=== PATIENT | male | born 1990 | race Two or more races ===

== ENCOUNTER 2022-10-15 21:01 | Emergency (ER) | payer MEDICARE, SELFPAY ==
[2022-10-15 21:31] VITALS: BP 137/102; PULSE 102; RESP 18; TEMP 37.2; O2SAT 98; BMI 29.2
--- NOTE | 2022-10-15 22:44 | ED.ANIMALBIT ---
HPI - Animal Bite General Chief Complaint: Animal Bite Stated Complaint: Dog bite/Work related Source: patient Mode of arrival: ambulatory Limitations: no limitations History of Present Illness HPI narrative: 32-year-old male presents for evaluation after being bitten and attacked by dogs while at work. complaint: animal bite Onset (ago): hour(s) (17:30) Animal: dog Description of animal: unknown animal Mechanism: bite and scratch Location: buttocks Location - Extremities: right: arm Pain description: constant Severity scale (1-10): 5 Context: animals fighting Associated symptoms: bleeding Related Data Patient tetanus UTD: No Previous Rx's Medication Instructions Recorded amoxicillin 875 mg-potassium 1 tab PO Q12H 10 days #20 tabs 10/16/22 clavulanate 125 mg tablet Allergies Allergy/AdvReac Type Severity Reaction Status Date / Time No Known Allergies Allergy Unverified 04/13/20 17:14 [No Known Allergies*] Review of Systems Review of Systems: Constitutional: No Fever, No Chills Cardiovascular: No Chest Pain, No SOB Respiratory: No Cough, No Dyspnea Gastrointestinal: No Nausea, No Vomiting, No Diarrhea, No abdominal Pain Genitourinary: No Dysuria, No Hematuria Musculoskeletal: positive right arm and buttock pain, No Myalgias, No Joint Swelling Skin: Multiple abrasions to the right forearm, dog bite to buttock, No Skin lacerations, No rash Neuro: No Weakness, No Numbness, No Paresthesias, No Dizziness, No Headache Yes all other systems are reviewed and are negative PMFSH Social History Social History Advance Directives: No Advance Directives Information Provided: No Physical Exam ED Vital Signs: Vital Signs - 24 hr 10/15/22 21:31 Temperature 98.9 F Pulse Rate 102 H Respiratory Rate 18 Blood Pressure 137/102 H Pulse Oximetry 98 Oxygen Delivery Method Room Air BMI result Body Mass Index 29.2 Appearance: Alert. Oriented X3. No acute distress. Eyes: Pupils equal, round and reactive to light. ENT: Pharynx normal. Neck: Normal inspection. Neck supple. CVS: Normal heart rate and rhythm. Pulses normal. Respiratory: No respiratory distress. Breath sounds normal. Skin: Numerous superficial scratches and bite marlow to the forearm and bite marlow to buttock. Extremities: No lower extremity edema. Gait balance and coordinated. Neuro: No motor deficit. No sensory deficit. Cranial nerves 2-12 intact Course Course Course Narrative: 32-year-old male presents for evaluation for a dog bite attack. Patient was at work, and was bitten by dogs, fell to the ground and has multiple dermal abrasions to the forearm, and bite marlow to his buttocks. Plan of care is to clean the wounds rabies vaccine, update Tdap vaccine, and immunoglobulin. Wounds were cleaned, plan of care is for patient to follow up with work connection as needed. Will give Augmentin. Patient verbalized understanding of discharge instructions. Verbalized understandings of signs and symptoms indicating need for emergent intervention. Medications Administered Discontinued Medications Generic Name Dose Route Start Last Admin Trade Name Freq PRN Reason Stop Dose Admin Amoxicillin/Clavulanate Potassium 875 mg 10/15/22 22:45 10/15/22 23:14 Amoxicillin/Potassium Clav 875 Mg Tablet PO 10/15/22 22:46 875 mg ONCE ONE Administration Diphtheria/Tetanus/Acell Pertussis 0.5 ml 10/15/22 22:44 10/15/22 23:16 Diphth,Pertus(Acell),Tet Adult 0.5 Ml Syringe IM 10/15/22 22:45 0.5 ml .ONCE ONE Administration Rabies Immune Globulin 1,496.86 unit 10/15/22 22:44 10/15/22 23:16 Rabies Immune Globulin/Pf 900 Unit/3 Ml Vial 20 unit/kg (1496.86 unit) 10/15/22 22:45 1,496.86 unit IM Administration ONCE ONE Rabies Vaccine 1 ml 10/15/22 22:44 10/15/22 23:15 Rabies Vaccine (Pcec)/Pf 1 Ml Vial IM 10/15/22 22:45 1 ml .ONCE ONE Administration Medical Decision Making Differential Diagnosis Differential Diagnoses: The differential diagnosis associated with the presentation includes Abrasions, dog bite External Record Review No prior records for this patient at this facility Prescription Management I considered prescription management with: Antibiotic Discharge Plan Discharge Clinical Impression: Dog bite Patient Disposition: Home, Self-Care Instructions: Animal Bite (ED), Rabies (ED) Additional Instructions: You were evaluated for a dog bite and attack, while you are at work. We cleaned your wounds, and gave you rabies immunoglobulin and vaccine. Please present for subsequent vaccines as directed. It is very important that you follow these directions, rabies will kill you. Please take Augmentin 875 mg twice a day for the next 10 days. We updated your Tdap vaccine today. Please follow-up with work connection in the next 3-5 days. If you notice any signs or symptoms indicating infection please return sooner. Thank you for choosing this emergency department for evaluation. Please follow-up with primary care physician as needed. Return to the emergency department for any new, concerning, or worsening symptoms. Prescriptions: New amoxicillin-pot clavulanate 875-125 mg tablet 1 tab PO Q12H 10 Days Qty: 20 0RF
[2022-10-15] MEDS: Amoxicillin/Potassium Clav 875 MG TABLET PO (23:14)
[2022-10-15] MEDS: Rabies Vaccine (PCEC)/PF 1 ML VIAL IM (23:15)
[2022-10-15] MEDS: Diphth,Pertus(ACell),Tet Adult 0.5 ML SYRINGE IM (23:16)
[2022-10-15] MEDS: Rabies Immune Globulin/PF 900 UNIT/3 ML VIAL 1496.86 UNIT IM (23:16)
== END 2022-10-16 00:30 | disposition home or self-care (01) ==
PROVIDERS: Emergency Provider Emergency Medicine Emergency Medical Services
DX: S41.151A Open bite of right upper arm, initial encounter (principal); S31.805A Open bite of unspecified buttock, initial encounter; S40.811A Abrasion of right upper arm, initial encounter; S40.812A Abrasion of left upper arm, initial encounter; W54.0XXA Bitten by dog, initial encounter; Y93.9 Activity, unspecified; Y92.9 Unspecified place or not applicable; Y99.0 Civilian activity done for income or pay; Z29.14 Encounter for prophylactic rabies immune globulin; Z20.3 Contact with and (suspected) exposure to rabies; Z79.899 Other long term (current) drug therapy
CPT/HCPCS: 90375; 90471; 90472; 90675; 90715; 96372; 99282; 99284

== ENCOUNTER 2022-10-18 12:05 | Outpatient (REF) | payer MEDICARE, MEDICAID, SELFPAY | END 2022-10-18 12:06 | disposition home or self-care (01) | LOC: HO.MDS 12:05 | PROVIDERS: Visit Provider Nurse Practitioner Family | DX: Z29.14 Encounter for prophylactic rabies immune globulin (principal); S31.815D Open bite of right buttock, subsequent encounter; S51.851D Open bite of right forearm, subsequent encounter; W54.0XXD Bitten by dog, subsequent encounter; Z20.3 Contact with and (suspected) exposure to rabies | CPT/HCPCS: 90471; 90675 ==

== ENCOUNTER 2022-10-22 09:21 | Outpatient (REF) | payer MEDICARE, MEDICAID, SELFPAY | END 2022-10-22 09:22 | disposition home or self-care (01) | LOC: HO.MDS 09:21 | PROVIDERS: Visit Provider Nurse Practitioner Family | DX: Z29.14 Encounter for prophylactic rabies immune globulin (principal); S31.815D Open bite of right buttock, subsequent encounter; S51.851D Open bite of right forearm, subsequent encounter; W54.0XXD Bitten by dog, subsequent encounter; Z20.3 Contact with and (suspected) exposure to rabies | CPT/HCPCS: 90471; 90675 ==

== ENCOUNTER 2022-10-29 08:59 | Outpatient (REF) | payer MEDICARE, MEDICAID, SELFPAY | END 2022-10-29 09:00 | disposition home or self-care (01) | LOC: HO.MDS 08:59 | PROVIDERS: Visit Provider Nurse Practitioner Family | DX: Z29.14 Encounter for prophylactic rabies immune globulin (principal); S30.870D Other superficial bite of lower back and pelvis, subsequent encounter; S50.871D Other superficial bite of right forearm, subsequent encounter; W54.0XXD Bitten by dog, subsequent encounter; Z20.3 Contact with and (suspected) exposure to rabies | CPT/HCPCS: 90471; 90675 ==

== ENCOUNTER 2022-12-20 08:18 | Outpatient (REF) | payer OTHER, SELFPAY ==
[2022-12-20 11:17] LABS: MANUAL DIFF FLAG NO
[2022-12-20 11:35] LABS: Appearance Urine Clear; Color Urine Yellow; Glucose Urine UA Negative (Negative); Leukocyte Esterase Urine Negative (Negative); Nitrite Urine Negative (Negative); Specific Gravity - Urine 1.025 (1.005-1.025); Urine Blood Negative (Negative); Urine Ketones Negative (Negative); Urine Protein Negative (Neg-Trace)
[2022-12-20 11:39] LABS: Basophils Absolute Auto 0.1 X10*3/uL (0.0-0.2); Basophils Percent Auto 0.7 % (0-2); Eosinophils Absolute Auto 0.8 X10*3/uL (0.0-0.4); Eosinophils Percent Auto 9.7 % (0-4); Hematocrit 44.7 % (42.0-52.0); Hemoglobin 15.2 g/dl (14.0-18.0); Imm Gran Abs Auto 0.02 X10*3/uL (0.00-0.03); Imm Gran Pct Auto 0.2 % (0.0-0.4); Lymphocytes Absolute Auto 3.1 X10*3/uL (1.2-4.9); Lymphocytes Percent Auto 35.7 % (20-40); Mean Corpuscular Hemoglobin 30.8 pg (27.0-33.0); Mean Corpuscular Volume 90.5 fL (80.0-98.0); Monocytes Absolute Auto 0.6 X10*3/uL (0.1-1.2); Monocytes Percent Auto 6.4 % (2-11); Neutrophils Percent Auto 47.3 % (45-73); Platelet Count 310 X10*3/uL (160-400); Red Blood Count 4.94 X10*6/uL (4.60-5.80); Red Cell Distribution Width 12.3 % (11.0-16.0); White Blood Count 8.6 X10*3/uL (4.8-10.8)
[2022-12-20 11:43] LABS: Bacteria Urine None Seen (None Seen); Hyaline Casts Urine 0-2 /LPF (0-2); RBC Urine 0-2 /HPF (0-2); Squamous Epithelial Cell Urine 0-2 /HPF (0-2); WBC Urine 0-5 /HPF (0-5)
[2022-12-20 11:46] LABS: Alanine Aminotransferase 18 U/L (0-40); Albumin Level 4.2 g/dL (3.5-5.0); Alkaline Phosphatase 101 U/L (39-117); Anion Gap 11 (12-20); Aspartate Amino Transferase 17 U/L (5-37); Bilirubin Total 0.5 mg/dL (0.0-1.0); Blood Urea Nitrogen 18 mg/dL (9-16); Calcium 9.4 mg/dL (8.4-10.2); Carbon Dioxide 25 mmol/L (22-29); Chloride 110 mmol/L (96-108); Cholesterol 161 mg/dL; Estimated Glomerular Filt Rate > 60; Glucose Fasting 91 mg/dL (60-99); HDL Cholesterol 36 mg/dL; LDL Cholesterol Calculated 100 mg/dl; Potassium 4.3 mmol/L (3.3-5.1); Sodium 142 mmol/L (135-145); Total Protein 7.4 g/dL (6.5-8.0); Triglycerides 127 mg/dL
[2022-12-20 12:06] LABS: Syphilis Screen Nonreactive (Nonreactive)
[2022-12-20 12:07] LABS: HBsAGNum1 0.25 S/CO (0.00-0.99); HIV AB/AG Nonreactive (Nonreactive); HIV Num 1 0.05 S/CO (0.00-0.99); Hepatitis B Core Antibody Nonreactive (Nonreactive); Hepatitis B Surface Antigen Negative (Negative); ~HepC Num1 0.18 S/CO (0.00-0.79); ~Hepatitis B Surface Antibody NONREACTIVE (Nonreactive); ~Hepatitis C Antibody Nonreactive (Nonreactive)
== END 2022-12-20 08:19 | disposition home or self-care (01) ==
LOC: HO.HMGCLDS 08:18
PROVIDERS: PCP Internal Medicine; Visit Provider Internal Medicine
DX: Z00.00 Encounter for general adult medical examination without abnormal findings (principal); Z11.4 Encounter for screening for human immunodeficiency virus [HIV]
CPT/HCPCS: 36415; 80053; 80061; 81001; 85025; 86704; 86706; 86780; 86803; 87340; 87389

== ENCOUNTER 2023-03-28 11:22 | Outpatient (AMB) | payer OTHER, SELFPAY ==
--- NOTE | 2023-03-28 11:35 | A.OFFVIS_ITS ---
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 Eli. He has a past medical history of anxiety, depression, and nicotine dependence. He presents to the office today as a new patient for urinary straining and issues with maintaining erections. He discusses his ongoing issues with anxiety and depression and reports to be drinking and smoking recreational marijuana daily in order to cope with this. He does report having a therapist and is working on limiting recreational marijuana, drinking, and nicotine dependence. In discussion with the patient today regarding his urinary symptoms he states that his main concern is his need to strain when urinating. He reports episodes are infrequent however finds them painful when experiencing them. He otherwise denies incontinence, nocturia, hematuria, dysuria, foul smelling urine, changes to urinary stream, flank pain, fever, and or chills. He discusses experiencing rhabdomyolysis twice many years ago. 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 Unable to obtain urine for urinalysis as patient unable to void however PVR 0 mL. He otherwise denies any other issues or concerns at this time. [facility] Medical History Anxiety Depression Family History Mother DM type 2 (diabetes mellitus, type 2) Social History Housing: House Patient Tobacco Use Status: Current everyday Tobacco user Cigarette Packs Per Day: 1 Cigarettes Per Day: 20 e-Cigarette/Vaping Use: Currently Using service: No Current occupational status: unemployed Cognitive needs: No Hearing needs: No Vision needs: No Review of Systems Const Reports as per HPI Eyes Reports no additional complaints ENT Reports no additional complaints Card Reports no additional complaints Resp Reports no additional complaints GI Reports no additional complaints Reports as per HPI Musc Reports no additional complaints Psych Reports as per HPI Endo Reports no additional complaints Christiano/Lymph Reports no additional complaints Aller/Immun Reports no additional complaints Physical Exam Const General: cooperative, healthy appearing, comfortable, no acute distress, well developed, alert and awake Nutritional Appearance: average body habitus Orientation/consciousness: patient oriented x3 Limitations: no limitations HEENT Head: Yes normal to inspection, Yes normocephalic and Yes atraumatic Ears: hearing grossly normal bilaterally Eyes General: appearance normal, both eyes and all related structures Neck Neck: Yes normal visual inspection and Yes trachea midline Chest Chest palpation & inspection: normal inspection of the chest Resp Effort & Inspection: normal respiratory effort and able to speak in complete sentences Cardio Rate: regular rate GI Inspection: Yes normal to inspection General: Yes no CVA tenderness Back/Spine/Pelvis Back: no CVA tenderness Skin General skin exam: no rashes or lesions noted Neuro General: patient oriented x3 Extrem General: Yes normal to inspection Psych Appearance: grossly normal and well kempt Mental Status: mental status grossly normal Speech and movement: Normal speech and movement present and Clear speech present Affect: normal affect Attitude: cooperative Thought process: Normal thought process present Thought content: Normal thought content present Insight: Fair insight present (Psych) Judgement: Fair judgement present (Psych) Office Procedures Post Void Residual Post Residual Void Post Void Residual (PVR): 0 [id number] Void Residual by ultrasound Assessment & Plan Assessment & Plan (1) Nicotine dependence: Code(s): F17.200 - Nicotine dependence, unspecified, uncomplicated (2) Lower urinary tract symptoms: Code(s): R39.9 - Unspecified symptoms and signs involving the genitourinary system (3) Erectile dysfunction: Code(s): N52.9 - Male erectile dysfunction, unspecified Plan Unable to obtain urine for urinalysis as patient unable to void. PVR 0 mL. Discussed at length importance of limiting alcohol, recreational marijuana, and cigarette smoking for improvement in erectile dysfunction, lower urinary tract symptoms, and overall health and well-being. Will obtain retroperitoneal ultrasound for further assessment evaluation Discussed other forms of coping with anxiety and depression patient is experiencing. Start low dose Cialis as discussed and prescribed. Follow-up in 6-8 weeks with imaging to be completed prior; or sooner with any issues, concerns, and or questions. Orders: Orders US retroperitoneal comp 03/28/23 R39.9 - Unspecified symptoms and signs involving the genitourinary system AMB Urinalysis Automated 03/28/23 Z13.9 - Encounter for screening, unspecified AMB Post Void Residual by ultrasound 03/28/23 N53.19 - Other ejaculatory dysfunction Medications: New tadalafil (Cialis) [id number] [facility] [id number] Member [id number] 5 mg PO DAILY 90 days 90 tabs 0RF Patient Instructions: The patient had an opportunity to ask questions regarding the treatment plan. All questions were answered. Physical exam, labs, and imaging were discussed and reviewed in detail. As well as risks, benefits, and discussion of treatment choices. No major barriers to understanding were identified. The patient expressed understanding and agreement with the above treatment plan. The patient was made aware they should contact our office by phone for worsening of their current condition, the appearance of new symptoms, or with any questions or concerns. Compliance is encouraged with any medications and follow up testing that is ordered. It is a privilege to be allowed the opportunity to participate in? your urological care.? Again, if you have any questions or concerns If you have any questions or concerns please do not hesitate to contact me. The office is [phone]. This note is constructed using voice recognition software. While every effort has been made to ensure accuracy weaver dobby loom errors may have been included. Yours sincerely, VIRGILIO Talbot Coding Level of Care Code New Pt Level 4 (08471) Diagnoses Nicotine dependence F17.200 Lower urinary tract symptoms R39.9 Erectile dysfunction N52.9 CPT Codes Post Residual Void - PVR CPT Code: 84521-[id number] Void Residual by ultrasound ([id number])
== END 2023-03-28 12:10 | disposition home or self-care (01) ==
PROVIDERS: PCP Internal Medicine; Visit Provider Nurse Practitioner Family
DX: F17.200 Nicotine dependence, unspecified, uncomplicated (principal); R39.9 Unspecified symptoms and signs involving the genitourinary system; N52.9 Male erectile dysfunction, unspecified
CPT/HCPCS: 99204

== ENCOUNTER → 2023-03-28 11:22 | Outpatient (BNVA) | payer OTHER, SELFPAY | PROVIDERS: PCP Internal Medicine; Visit Provider Nurse Practitioner Family | DX: N52.9 Male erectile dysfunction, unspecified (principal); R39.9 Unspecified symptoms and signs involving the genitourinary system; F17.210 Nicotine dependence, cigarettes, uncomplicated | CPT/HCPCS: 51798; 99202 ==

== ENCOUNTER 2023-04-16 13:51 | Emergency (ER) | payer OTHER, SELFPAY ==
--- NOTE | ~2023-04-16 | CT_ITS ---
EXAMINATION: CT ABDOMEN AND PELVIS WITHOUT CONTRAST CLINICAL INFORMATION: Flank pain, rule out stone COMPARISON: None available. TECHNIQUE: Multidetector volumetric imaging was performed from the superior aspect of the liver through the pubic symphysis. Sagittal and coronal reformatted images were obtained on the technologist's workstation. This CT examination was performed using dose optimization techniques as appropriate, variously including the following: *Automated exposure control *Adjustment of mA and/or kV according to patient size (this includes techniques or standardized protocols for targeted exams where dose is matched to indication/reason for exam; i.e. extremities or head) *Use of iterative reconstruction technique DLP: 505 mGy-cm FINDINGS: LUNG BASES: The visualized lung bases are unremarkable. LIVER, GALLBLADDER, AND BILIARY TREE: The liver is normal in size, shape, and attenuation. No focal hepatic lesion or biliary ductal dilatation is present. The gallbladder is unremarkable with no evidence of radiopaque gallstones, gallbladder wall thickening, or obvious pericholecystic inflammatory changes. PANCREAS: Unremarkable. SPLEEN: There is a low-density lesion within the spleen etiology indeterminate. Inferior. Measures 2 x 2.2 cm. ADRENAL GLANDS: Unremarkable. KIDNEYS AND URETERS: Kidneys are nonhydronephrotic. No stone is seen. BLADDER: Unremarkable. GASTROINTESTINAL TRACT: Nonobstructing bowel pattern. The appendix is within normal limits. ABDOMINAL WALL: No significant hernia is appreciated. LYMPH NODES: There is no bulky adenopathy here. VASCULAR: Unremarkable. PELVIC VISCERA: Unremarkable. OSSEOUS STRUCTURES: Unremarkable. CT/CT abdomen pelvis wo IV con IMPRESSION: No evidence of renal or ureteral stone or obstruction. The bowel pattern is within normal limits. There is a low-density lesion within the inferior aspect of the spleen. Ultrasound or MRI would be recommended to fully evaluate Fleischner guidelines were followed.
[2023-04-16 13:54] VITALS: BP 142/101; PULSE 91; RESP 19; TEMP 36.6; O2SAT 98; BMI 28.8
--- NOTE | 2023-04-16 13:54 | ED_ITS ---
HPI - General Adult General Chief complaint: Urogenital-Male Stated complaint: blood in urine lower back pain Time Seen by Provider: 04/16/23 19:25 Source: patient Mode of arrival: ambulatory Limitations: no limitations History of Present Illness HPI narrative: 33-year-old male presented today with complaint of a dark urine and left flank pain. Patient been having left flank pain for 3-4 days pain is been constant it is tender to touch, pain is worse with turning his body or bending over. Patient is concerned because they had a history of rhabdomyolysis with renal failure, patient admits that he did not drink enough water today. No fever, no chills , no nausea, no vomiting, no diarrhea. Related Data Previous Rx's Medication Instructions Recorded tadalafil 5 mg tablet (Cialis) 5 mg PO DAILY 90 days #90 tabs 03/28/23 Allergies Allergy/AdvReac Type Severity Reaction Status Date / Time No Known Allergies Allergy Verified 03/28/23 13:13 [No Known Allergies*] Review of Systems 2 Review of Systems: All other systems are reviewed and are negative Constitutional: Reports as per HPI and Reports no additional constitutional complaints Eyes: Reports as per HPI and Reports no additional eye complaints Reports system reviewed and no additional complaints, except as documented Cardiovascular: Reports as per HPI and Reports no additional cardiovascular complaints Respiratory: Reports as per HPI and Reports no additional respiratory complaints Gastrointestinal: Reports as per HPI and Reports no additional gastrointestinal complaints Genitourinary: Reports no additional female genitourinary complaints Musculoskeletal: Reports no additional musculoskeletal complaints Skin/Breast: Reports system reviewed and no additional complaints, except as docu Psychiatric: Reports no additional psychiatric complaints Endocrine: Reports no additional endocrine complaints Hematologic/Lymphatic: Reports no additional hematologic/lymphatic complaints Allergic/Immunologic: Reports no additional allergic/immunologic complaints Reports system reviewed and no additional complaints, except as documented and Reports Abnormal speech present [facility] Past Medical History Medical History Depression Anxiety Family History Family History Mother DM type 2 (diabetes mellitus, type 2) Social History Social History Housing: House Alcohol intake: current Alcohol intake frequency: a few times a week Patient Tobacco Use Status: Current everyday Tobacco user Cigarette Packs Per Day: 1 Cigarettes Per Day: 20 Smoked in Last 30 Days: Yes e-Cigarette/Vaping Use: Currently Using Use of substances other than those prescribed or required for medical reasons: Yes Substance Use Type: Marijuana Substance Use Frequency: Daily Advance Directives: No Advance Directives Information Provided: No service: No Current occupational status: unemployed Cognitive needs: No Hearing needs: No Vision needs: No Physical Exam ED Vital Signs: Vital Signs - 24 hr 04/16/23 13:54 04/16/23 18:03 04/16/23 21:11 Temperature 98 F 98.7 F Pulse Rate 91 65 64 Respiratory Rate 19 18 18 Blood Pressure 142/101 H 138/87 159/94 H Pulse Oximetry 98 99 99 Oxygen Delivery Method Room Air Room Air Room Air BMI result Body Mass Index 28.8 Vital signs have been reviewed and appear to be correct. Blood pressure elevated. Heart rate normal. Respiratory rate normal. Temperature normal. Oxygen saturation normal. Appearance: Alert. Oriented X3. No acute distress. Head: Normal external exam. Normocephalic. Atraumatic. No Zepeda signs noted. No raccoon eyes noted Eyes: PERRLA. EOMI. Conjunctiva and sclera normal. Eyelids normal. ENT: TM's Normal. Pharynx normal. Uvula midline. Moist mucous membranes. No trismus noted. No drooling noted. No muffled voice noted. Neck: Normal inspection. Neck supple. FROM. No adenopathy. Thyroid Normal. No meningeal signs. No neck mass noted. CVS: Normal heart rate and rhythm. Heart sound normal. No murmurs noted. Pulses normal throughout. Respiratory: No respiratory distress. Painless inspiration. Breath sounds normal. No wheezes/rales/rhonchi noted. Chest nontender. No accessory muscle usage noted or decreased air movement noted. Abdomen: Soft and nontender. Bowel sounds normal in all 4 quadrants. No distention noted. No organomegaly noted. No visible injury noted. Back: Left CVA tenderness. Full range of motion noted. Skin: Skin warm and dry. Normal skin color. Normal skin turgor. No rashes/lesions/lacerations noted. Extremities: No lower extremity edema. Extremities exhibit normal range of motion. Extremities nontender. Neuro: Oriented X 3. Cranial nerve exam: II-XII are grossly intact No motor deficit. No sensory deficit. Reflexes normal. Course Course Course Narrative: This is a rapid medical exam: Additional HPI, ROS, PE not included below will be deferred to primary provider. Patient is a 33-year-old male presenting to the emergency department with complaint of left flank pain and today noted dark urine. 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 Current pain without movement is 4-5/10. Pain increases with walking/palpation. Has also had a migraine and night sweats with AC on the past few days, has been coughing, nasal congestion, vomiting. Went to a football game Friday of last week and that's when symptoms began. Plan: UA, labs including CK, testing for Covid, flu Reevaluation(s) Reevaluation #1: CT abdomen pelvis is showing no acute pathology, urine analysis showing no blood, possible dehydration was instructed to drink plenty of fluids as an outpatient. As discussed with the patient to follow-up with PCP for abdominal ultrasound for incidental node on the spleen. Time: 21:00 Medications Administered Discontinued Medications Generic Name Dose Route Start Last Admin Trade Name Freq PRN Reason Stop Dose Admin Sodium Chloride 1,000 mls @ 999 mls/hr 04/16/23 19:42 04/16/23 21:16 Ns IV 04/16/23 20:42 Not Given .Q1H1M ONE Medical Decision Making Differential Diagnosis Differential Diagnoses: The differential diagnosis associated with the presentation includes ( Dehydration, rhabdomyolysis, electrolyte abnormality, severe anemia, kidney stone, UTI, pyelonephritis, colitis.) Admission/Observation Consideration of admission/observation: Escalation of care including admission/observation considered Lab Data MDM Lab Attestation statement: I reviewed the patient's lab results. 04/16/23 14:08 04/16/23 14:08 Labs: Lab Results 04/16/23 04/16/23 Range/Units 14:08 14:48 WBC 9.4 (4.8-10.8) X10*3/uL RBC 4.99 (4.60-5.80) X10*6/uL Hgb 15.6 (14.0-18.0) g/dl Hct 44.1 (42.0-52.0) % MCV 88.4 (80.0-98.0) fL MCH 31.3 (27.0-33.0) pg MCHC 35.4 (31.0-36.0) g/dl RDW 12.0 (11.0-16.0) % Plt Count 312 (160-400) X10*3/uL MPV 8.9 L (9.4-12.4) fL Immature Gran % (Auto) 0.3 (0.0-0.4) % Neut % (Auto) 44.5 L (45-73) % Lymph % (Auto) 42.1 H (20-40) % [place] % (Auto) 4.6 (2-11) % Eos % (Auto) 7.8 H (0-4) % Baso % (Auto) 0.7 (0-2) % Lymph # (Auto) 3.9 (1.2-4.9) X10*3/uL [place] # (Auto) 0.4 (0.1-1.2) X10*3/uL Eos # (Auto) 0.7 H (0.0-0.4) X10*3/uL Baso # (Auto) 0.1 (0.0-0.2) X10*3/uL Abs Immat Gran (auto) 0.03 (0.00-0.03) X10*3/uL Absolute Neuts (auto) 4.2 (2.0-8.3) x10*3/uL Absolute Nucleated RBC 0.000 (0.0-0.012) X10*3/uL Nucleated RBC % (auto) 0.0 (0.0-0.2) /100WBC Sodium 141 (135-145) mmol/L Potassium 4.3 (3.3-5.1) mmol/L Chloride 107 (96-108) mmol/L Carbon Dioxide 27 (22-29) mmol/L Anion Gap 11 L (12-20) BUN 15 (9-16) mg/dL Creatinine 0.89 (0.5-1.4) mg/dL Estim Creat Clear Calc 109.0 Estimated GFR > 60 Random Glucose 112 (60-115) mg/dL Calcium 9.4 (8.4-10.2) mg/dL Total Bilirubin 0.4 (0.0-1.0) mg/dL AST 20 (5-37) U/L ALT 19 (0-40) U/L Alkaline Phosphatase 88 (39-117) U/L Total Creatine Kinase 172 (38-174) U/L Total Protein 7.8 (6.5-8.0) g/dL Albumin 4.4 (3.5-5.0) g/dL Urine Color Yellow Urine Appearance Clear Urine pH 6.5 (5.0-9.0) Ur Specific [place] >= 1.030 H (1.005-1.025) Urine Protein Negative (Neg-Trace) mg/dL Urine Glucose (UA) Negative (Negative) mg/dL Urine Ketones Negative (Negative) mg/dL Urine Blood Negative (Negative) Urine Nitrite Negative (Negative) Ur Leukocyte Esterase Negative (Negative) COVID-19 (YULISSA) Negative (Negative) COVID-19 Clin Com See Note Influenza Type A (TAMELA) Negative (Negative) Influenza Type B (TAMELA) Negative (Negative) Influenza A & B Note See Note Independent Interpretation I performed an independent interpretation of an: CT Scan ( abdomen pelvis: No acute intra-abdominal pathology.) Radiology Impression Discussion of test interpretation with radiology: I have reviewed the radiologist's reading. Discharge Plan Discharge Clinical Impression: Left flank pain, Splenic mass Patient Disposition: Home, Self-Care Instructions: Flank Pain (ED) Additional Instructions: follow-up with your PCP to consider ultrasound of her abdomen to reassess the incidental mass found on your spleen. Prescriptions: No Action tadalafil [Cialis] 5 mg tablet 5 mg PO DAILY 90 Days Qty: 90 0RF Rx Instructions: [id number] [facility] [id number] Member [id number] Referrals: Keyanna Elias MD [Primary Care Provider] - Stand Alone Forms: Work/School Release Interventions: ED Discharge Assessment Last Done: 04/16/23 21:15 Discharge Date/Time: 04/16/23 21:16
[2023-04-16 14:13] LABS: MANUAL DIFF FLAG NO
[2023-04-16 14:14] LABS: Basophils Absolute Auto 0.1 X10*3/uL (0.0-0.2); Basophils Percent Auto 0.7 % (0-2); Eosinophils Absolute Auto 0.7 X10*3/uL (0.0-0.4); Eosinophils Percent Auto 7.8 % (0-4); Hematocrit 44.1 % (42.0-52.0); Hemoglobin 15.6 g/dl (14.0-18.0); Imm Gran Abs Auto 0.03 X10*3/uL (0.00-0.03); Imm Gran Pct Auto 0.3 % (0.0-0.4); Lymphocytes Absolute Auto 3.9 X10*3/uL (1.2-4.9); Lymphocytes Percent Auto 42.1 % (20-40); Mean Corpuscular HGB Conc 35.4 g/dl (31.0-36.0); Mean Corpuscular Hemoglobin 31.3 pg (27.0-33.0); Mean Corpuscular Volume 88.4 fL (80.0-98.0); Mean Platelet Volume 8.9 fL (9.4-12.4); Monocytes Absolute Auto 0.4 X10*3/uL (0.1-1.2); Monocytes Percent Auto 4.6 % (2-11); Neutrophils Absolute Auto 4.2 x10*3/uL (2.0-8.3); Neutrophils Percent Auto 44.5 % (45-73); Platelet Count 312 X10*3/uL (160-400); Red Blood Count 4.99 X10*6/uL (4.60-5.80); White Blood Count 9.4 X10*3/uL (4.8-10.8)
[2023-04-16 14:28] LABS: Alanine Aminotransferase 19 U/L (0-40); Albumin Level 4.4 g/dL (3.5-5.0); Alkaline Phosphatase 88 U/L (39-117); Anion Gap 11 (12-20); Aspartate Amino Transferase 20 U/L (5-37); Bilirubin Total 0.4 mg/dL (0.0-1.0); Blood Urea Nitrogen 15 mg/dL (9-16); COVID-19 Test Negative (Negative); Calcium 9.4 mg/dL (8.4-10.2); Carbon Dioxide 27 mmol/L (22-29); Chloride 107 mmol/L (96-108); Estimated Glomerular Filt Rate > 60; Glucose Random 112 mg/dL (60-115); IDNOW Serial# 16C4AD1C; Potassium 4.3 mmol/L (3.3-5.1); Sodium 141 mmol/L (135-145); Total Protein 7.8 g/dL (6.5-8.0)
[2023-04-16 14:29] LABS: IDNOW Serial# 58CA691E; Influenza A Negative (Negative); Influenza B2 Negative (Negative)
[2023-04-16 14:57] LABS: Appearance Urine Clear; Color Urine Yellow; Glucose Urine UA Negative (Negative); Leukocyte Esterase Urine Negative (Negative); Nitrite Urine Negative (Negative); PH 6.5 (5.0-9.0); Specific Gravity - Urine >= 1.030 (1.005-1.025); Urine Blood Negative (Negative); Urine Ketones Negative (Negative); Urine Protein Negative (Neg-Trace)
[2023-04-16 18:03] VITALS: BP 138/87; PULSE 65; RESP 18; TEMP 37.1; O2SAT 99
--- NOTE | 2023-04-16 21:10 | PC.NURSE ---
Due to staff meeting, IV and fluids delayed. As I was going to place an IV, Dr Grover instructed to hold, and hold the fluids.
[2023-04-16 21:11] VITALS: BP 159/94; PULSE 64; RESP 18; O2SAT 99
== END 2023-04-16 21:16 | disposition home or self-care (01) ==
PROVIDERS: Registered Nurse Emergency; Emergency Provider Emergency Medicine; PCP Internal Medicine
DX: R31.9 Hematuria, unspecified (principal); M54.50 Low back pain, unspecified; F17.210 Nicotine dependence, cigarettes, uncomplicated; Z20.822 Contact with and (suspected) exposure to COVID-19; Z20.828 Contact with and (suspected) exposure to other viral communicable diseases; Z71.6 Tobacco abuse counseling; Z79.899 Other long term (current) drug therapy
CPT/HCPCS: 74176; 80053; 81003; 82550; 85025; 87502; 87635; 99284

== ENCOUNTER 2023-04-22 09:58 | Outpatient (AMB) | payer OTHER, SELFPAY ==
[2023-04-22 10:04] VITALS: BP 118/66; PULSE 90; O2SAT 97; BMI 29.3
--- NOTE | 2023-04-22 10:04 | A.OFFPC_ITS ---
Vital Signs 04/22/23 10:04 Height 5 ft 4 in Weight 171 lb BMI 29.3 BP 118/66 Blood Pressure Location Lt brachial Position Sitting Pulse 90 Pulse Source Pulse Oximeter Pulse Oximetry (%) 97 Oxygen Delivery Method Room Air Intake Visit Reasons: ed follow up mass Intake Note: Pt is here today for ER follow up visit. Allergies No Known Allergies [No Known Allergies*] Allergy (Verified 04/22/23 10:06) Medication List - Last Reconciled 04/22/23 by Keyanna Elias MD tadalafil (Cialis) 5 mg PO DAILY 90 days Tobacco use date assessed: 04/22/23 Dental Screening Dental Screen Date: 04/22/23 Did you have a dental visit in the last 12 months?: Yes Did you have a dental problem in the last 6 months where you did not have access to dental care?: No Was dental information given to patient?: Patient has dentist HPI ed follow up mass HPI Details Patient presents for the follow-up of ER visit. He went to the ER with complaint of left flank pain after lifting heavy law clamp remover. CT of the abdomen and pelvis showed incidental finding of 2.2 cm mass on the spleen and evaluation with the ultrasound or MRI was recommended. Patient reports of left mid back pain improved. [facility] Medical History Depression Anxiety Family History Mother DM type 2 (diabetes mellitus, type 2) Social History Housing: House Alcohol intake: current Alcohol intake frequency: a few times a week Patient Tobacco Use Status: Current everyday Tobacco user Cigarette Packs Per Day: 1 Cigarettes Per Day: 20 e-Cigarette/Vaping Use: Currently Using Substance Use Type: Marijuana service: No Current occupational status: unemployed Cognitive needs: No Hearing needs: No Vision needs: No Questionnaire Thrive Questionnaire Date Thrive assessed: 12/20/22 NATHEN-7 AMB Questionnaire NATHEN-7 Date NATHEN - 7 assessed: 12/20/22 Source: Developed by Drs. Jw Kim, Ariana Joseph, Nimesh Tolliver and colleagues, with an educational lulu from [employer]. Review of Systems Const All systems reviewed & are unremarkable except as noted in HPI and below Reports no additional complaints Eyes Reports no additional complaints ENT Reports no additional complaints Card Reports no additional complaints Resp Reports no additional complaints GI Reports no additional complaints Reports no additional complaints Physical exam (Primary Care) Vital Signs: Last Vital Signs Pulse 90 04/22/23 10:04 BP 118/66 04/22/23 10:04 Pulse Ox 97 04/22/23 10:04 Oxygen Delivery Method Room Air 04/22/23 10:04 BMI result Body Mass Index 29.3 Tobacco/Smoking Status: Tobacco use Status Tobacco use date assessed 04/22/23 04/22/23 10:08 Patient Tobacco Use Status Current everyday Tobacco 04/22/23 10:08 e-Cigarette/Vaping Use Currently Using 04/22/23 10:08 Thrive Assessment: Date of Thrive Assessment Date Thrive assessed 12/20/22 04/22/23 10:08 Const General: no acute distress HENMT Face and sinus: Yes normal facial exam Eyes General: appearance normal, both eyes and all related structures Resp Effort & Inspection: normal respiratory effort Auscultation: clear to auscultation bilaterally Cardio Rhythm: regular rhythm Heart sounds: S1 normal heart sound present and S2 normal heart sound present GI Inspection: Yes normal to inspection Palpation (GI): Soft to palpation and No hepatosplenomegaly present Percussion: Yes normal to percussion Assessment and Plan Assessment & Plan (1) Splenic mass: Comment: 2.[address] 04/19 Code(s): R16.1 - Splenomegaly, not elsewhere classified Plan: Obtain abdominal ultrasound to evaluate for splenic mass Orders: Orders US abdomen limited Today R16.1 - Splenomegaly, not elsewhere classified Coding Level of Care Code Est Pt Level 3 (15811) Diagnoses Splenic mass R16.1
== END 2023-04-22 10:46 | disposition home or self-care (01) ==
PROVIDERS: PCP Internal Medicine; Visit Provider Internal Medicine
DX: R16.1 Splenomegaly, not elsewhere classified (principal)
CPT/HCPCS: 99213

== ENCOUNTER 2023-05-20 09:20 | Outpatient (REF) | payer OTHER, SELFPAY ==
--- NOTE | ~2023-05-20 | US_ITS ---
EXAMINATION: US ABDOMEN LIMITED CLINICAL INFORMATION: Splenomegaly, not elsewhere classified. COMPARISON: CT abdomen and pelvis 04/16/2023. TECHNIQUE: Real-time imaging of the spleen and left kidney. FINDINGS: LEFT KIDNEY: Normal. No hydronephrosis. No renal calculi or focal parenchymal lesions. The kidney measures 10.6 cm in maximum dimension. SPLEEN: The spleen measures 11.1 cm in maximum dimension. 2.4 x 1.6 x 2.0 cm septated cyst is seen. US/US abdomen limited IMPRESSION: Nonenlarged spleen containing 2.4 cm septated cyst which correlates with low-density lesion on recent CT.
== END 2023-05-20 09:21 | disposition home or self-care (01) ==
LOC: HO.US 09:20
PROVIDERS: Absent Provider Nurse Practitioner Family; PCP Internal Medicine; Visit Provider Internal Medicine
DX: R16.1 Splenomegaly, not elsewhere classified (principal)
CPT/HCPCS: 76705

== ENCOUNTER 2023-05-27 12:14 | Outpatient (AMB) | payer OTHER, SELFPAY ==
--- NOTE | 2023-05-27 12:21 | MHC.OFFVIS ---
Intake Intake Visit Reasons: 6w/US(set) Intake Note: Patient presents today for US Results Urology Medications: Tadalafil Blood Thinner: none Unable to void Spring Former Required: No Accompanied by: Self / Same As Patient Allergies No Known Allergies [No Known Allergies*] Allergy (Verified 05/27/23 12:55) Medication List - Last Reconciled 05/27/23 by VIRGILIO Talbot tadalafil (Cialis) 5 mg PO DAILY 90 days tadalafil 20 mg PO .PRN 90 days HPI HPI Comments History of Present Illness Details Arden is a very pleasant 33-year-old male patient of Dr. Eli. He has a past medical history of anxiety, depression, and nicotine dependence. He presents to the office today for follow-up. Of note, patient was seen approximately 2 months ago as a new patient for urinary straining and issues with maintaining erections at which time a retroperitoneal ultrasound was ordered and the patient was started on low-dose Cialis. It appears retroperitoneal ultrasound was not completed however recent CT of the abdomen and pelvis results reviewed with the patient today. Kidneys are nonhydronephrotic. No stone is seen. The bladder is unremarkable. He reports noting significant improvement in lower urinary tract symptoms on 5 mg of Cialis daily. He also reports having taken more medication at one time p.r.n. prior to sexual activity however this was not prescribed this way. Discussed at length importance of taking medications as prescribed as well as importance of limiting/quitting cigarette smoking as well as recreational marijuana smoking. However in discussion with the patient today he reports he continues smoking increased amounts of recreational marijuana daily as well as cigarettes. He endorses having smoked prior to today's appointment. When asked he denies incontinence, nocturia, hematuria, dysuria, foul smelling urine, changes to urinary stream, flank pain, fever, and or chills. 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 Unable to obtain urine for urinalysis as patient unable to void however PVR 0 mL. He otherwise denies any other issues or concerns at this time. [facility] Medical History Depression Anxiety Family History Mother DM type 2 (diabetes mellitus, type 2) Social History Housing: House Alcohol intake: current Alcohol intake frequency: a few times a week Patient Tobacco Use Status: Current everyday Tobacco user Cigarette Packs Per Day: 1 Cigarettes Per Day: 20 e-Cigarette/Vaping Use: Currently Using Substance Use Type: Marijuana service: No Current occupational status: unemployed Cognitive needs: No Hearing needs: No Vision needs: No Review of Systems Const Reports as per HPI Eyes Reports no additional complaints ENT Reports no additional complaints Card Reports no additional complaints Resp Reports no additional complaints GI Reports no additional complaints Reports as per HPI Musc Reports no additional complaints Psych Reports as per HPI Endo Reports no additional complaints Christiano/Lymph Reports no additional complaints Aller/Immun Reports no additional complaints Physical Exam Const General: cooperative, healthy appearing, comfortable, no acute distress, well developed, alert and awake Nutritional Appearance: average body habitus Orientation/consciousness: patient oriented x3 Limitations: no limitations HEENT Head: Yes normal to inspection, Yes normocephalic and Yes atraumatic Ears: hearing grossly normal bilaterally Eyes General: appearance normal, both eyes and all related structures Neck Neck: Yes normal visual inspection and Yes trachea midline Chest Chest palpation & inspection: normal inspection of the chest Resp Effort & Inspection: normal respiratory effort and able to speak in complete sentences Cardio Rate: regular rate GI Inspection: Yes normal to inspection General: Yes no CVA tenderness Back/Spine/Pelvis Back: no CVA tenderness Skin General skin exam: no rashes or lesions noted Neuro General: patient oriented x3 Extrem General: Yes normal to inspection Psych Appearance: grossly normal and well kempt Mental Status: mental status grossly normal Speech and movement: Normal speech and movement present and Clear speech present Affect: normal affect Attitude: cooperative Thought process: Normal thought process present Thought content: Normal thought content present Insight: Fair insight present (Psych) Judgement: Fair judgement present (Psych) Results Reviewed Results Reviewed: Date of Service: 04/16/23 EXAMINATION: CT ABDOMEN AND PELVIS WITHOUT CONTRAST FINDINGS: LUNG BASES: The visualized lung bases are unremarkable. LIVER, GALLBLADDER, AND BILIARY TREE: The liver is normal in size, shape, and attenuation. No focal hepatic lesion or biliary ductal dilatation is present. The gallbladder is unremarkable with no evidence of radiopaque gallstones, gallbladder wall thickening, or obvious pericholecystic inflammatory changes. PANCREAS: Unremarkable. SPLEEN: There is a low-density lesion within the spleen etiology indeterminate. Inferior. Measures 2 x 2.2 cm. ADRENAL GLANDS: Unremarkable. KIDNEYS AND URETERS: Kidneys are nonhydronephrotic. No stone is seen. BLADDER: Unremarkable. GASTROINTESTINAL TRACT: Nonobstructing bowel pattern. The appendix is within normal limits. ABDOMINAL WALL: No significant hernia is appreciated. LYMPH NODES: There is no bulky adenopathy here. VASCULAR: Unremarkable. PELVIC VISCERA: Unremarkable. OSSEOUS STRUCTURES: Unremarkable. IMPRESSION: No evidence of renal or ureteral stone or obstruction. The bowel pattern is within normal limits. There is a low-density lesion within the inferior aspect of the spleen. Ultrasound or MRI would be recommended to fully evaluate Assessment & Plan Assessment & Plan (1) Nicotine dependence: Code(s): F17.200 - Nicotine dependence, unspecified, uncomplicated (2) Lower urinary tract symptoms: Code(s): R39.9 - Unspecified symptoms and signs involving the genitourinary system (3) Erectile dysfunction: Code(s): N52.9 - Male erectile dysfunction, unspecified Plan Unable to obtain urine for urinalysis however PVR [address] of the abdomen and pelvis results reviewed with the patient today; as noted above. Discussed and stressed the importance of limiting/quitting recreational marijuana as well as daily cigarette smoking for improvement in symptoms as well as overall health and well-being. Continue low-dose Cialis 5 mg daily as discussed and prescribed. Discussed at length importance of taking medications as prescribed P.r.n. prescription provided Discussed, educated, encouraged on the importance of drinking plenty of water daily. Follow-up in 6 months with PVR; if not sooner with any issues, concerns, and or questions. Medications: New tadalafil [id number] [facility] [id number] Member [id number] 20 mg PO .PRN 20 tabs 0RF sexual activity 90 days N52.01 - Erectile dysfunction due to arterial insufficiency, N52.9 - Male erectile dysfunction, unspecified Refilled tadalafil (Cialis) [id number] [facility] [id number] Member [id number] 5 mg PO DAILY 90 tabs 3RF 90 days Patient Instructions: The patient had an opportunity to ask questions regarding the treatment plan. All questions were answered. Physical exam, labs, and imaging were discussed and reviewed in detail. As well as risks, benefits, and discussion of treatment choices. No major barriers to understanding were identified. The patient expressed understanding and agreement with the above treatment plan. The patient was made aware they should contact our office by phone for worsening of their current condition, the appearance of new symptoms, or with any questions or concerns. Compliance is encouraged with any medications and follow up testing that is ordered. It is a privilege to be allowed the opportunity to participate in? your urological care.? Again, if you have any questions or concerns If you have any questions or concerns please do not hesitate to contact me. The office is [phone]. This note is constructed using voice recognition software. While every effort has been made to ensure accuracy liner reroll tender errors may have been included. Yours sincerely, VIRGILIO Talbot Coding Level of Care Code Est Pt Level 4 (55653) Diagnoses Nicotine dependence F17.200 Lower urinary tract symptoms R39.9 Erectile dysfunction N52.9
== END 2023-05-27 12:44 | disposition home or self-care (01) ==
PROVIDERS: PCP Internal Medicine; Visit Provider Nurse Practitioner Family
DX: F17.200 Nicotine dependence, unspecified, uncomplicated (principal); R39.9 Unspecified symptoms and signs involving the genitourinary system; N52.9 Male erectile dysfunction, unspecified
CPT/HCPCS: 99214

== ENCOUNTER → 2023-05-27 12:14 | Outpatient (BNVA) | payer OTHER, SELFPAY | PROVIDERS: PCP Internal Medicine; Visit Provider Nurse Practitioner Family | DX: N52.9 Male erectile dysfunction, unspecified (principal); R39.9 Unspecified symptoms and signs involving the genitourinary system; F17.210 Nicotine dependence, cigarettes, uncomplicated | CPT/HCPCS: 99212 ==

== ENCOUNTER 2023-11-25 10:31 | Outpatient (AMB) | payer OTHER, SELFPAY ==
--- NOTE | 2023-11-25 10:31 | MHC.OFFVIS ---
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 Eli. He has a past medical history of anxiety, depression, and nicotine dependence. He presents to the office today for follow-up of his erectile dysfunction. In discussion with the patient today he reports noting no improvement in his erections with 5 mg of Cialis daily with on demand dosing prior to sexual activity. He discusses feeling his issues to erectile dysfunction are related to more of a mental health component as his girlfriend of 8 years has cheated on him. He does report being able to obtain erections while masturbating. He reports finding it difficult to obtain erections as he continues to think about the infidelity. He otherwise denies any bothersome urinary issues or concerns. He denies urinary urgency, urinary frequency, incontinence, nocturia, hematuria, dysuria, foul smelling urine, changes to urinary stream, flank pain, fever, and or chills. He does endorse to smoking increased amounts of recreational marijuana daily and consumes alcohol 3-5 times per week. Discussed at length importance of limiting/quitting cigarette smoking as well as recreational marijuana smoking. In office urinalysis results reviewed with the patient today. PVR 12 mLs. 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 He otherwise denies any other issues or concerns at this time. [facility] Medical History Depression Anxiety Family History Mother DM type 2 (diabetes mellitus, type 2) Social History Housing: House Alcohol intake: current Alcohol intake frequency: a few times a week Patient Tobacco Use Status: Current everyday Tobacco user Cigarette Packs Per Day: 1 Cigarettes Per Day: 20 e-Cigarette/Vaping Use: Currently Using Substance Use Type: Marijuana service: No Current occupational status: unemployed Cognitive needs: No Hearing needs: No Vision needs: No Review of Systems Const Reports as per HPI Eyes Reports no additional complaints ENT Reports no additional complaints Card Reports no additional complaints Resp Reports no additional complaints GI Reports no additional complaints Reports as per HPI Musc Reports no additional complaints Psych Reports as per HPI Endo Reports no additional complaints Christiano/Lymph Reports no additional complaints Aller/Immun Reports no additional complaints Physical Exam Const General: cooperative, healthy appearing, comfortable, no acute distress, well developed, alert and awake Nutritional Appearance: average body habitus Orientation/consciousness: patient oriented x3 Limitations: no limitations HEENT Head: Yes normal to inspection, Yes normocephalic and Yes atraumatic Ears: hearing grossly normal bilaterally Eyes General: appearance normal, both eyes and all related structures Neck Neck: Yes normal visual inspection and Yes trachea midline Chest Chest palpation & inspection: normal inspection of the chest Resp Effort & Inspection: normal respiratory effort and able to speak in complete sentences Cardio Rate: regular rate GI Inspection: Yes normal to inspection General: Yes no CVA tenderness Back/Spine/Pelvis Back: no CVA tenderness Skin General skin exam: no rashes or lesions noted Neuro General: patient oriented x3 Extrem General: Yes normal to inspection Psych Appearance: grossly normal and well kempt Mental Status: mental status grossly normal Speech and movement: Normal speech and movement present and Clear speech present Affect: normal affect Attitude: cooperative Thought process: Normal thought process present Thought content: Normal thought content present Insight: Fair insight present (Psych) Judgement: Fair judgement present (Psych) Office Procedures Post Void Residual Post Residual Void Post Void Residual (PVR): 12 61548-Yrlb Void Residual by ultrasound Results AMB Urinalysis, Automated UA Leukoctes 0 Mahnaz/uL Last Edit by [employer] on 11/25/23 10:46 UA Nitrite Negative Last Edit by [employer] on 11/25/23 10:46 UA Urobilinogen 0.2 mg/dL Last Edit by [employer] on 11/25/23 10:46 UA Protein 0 mg/dL Last Edit by [employer] on 11/25/23 10:46 UA pH 6.5 Last Edit by Uma Jean on 11/25/23 10:46 UA Blood 0 Asa/uL Last Edit by Uma Jean on 11/25/23 10:46 UA Specific [place] 1.015 Last Edit by Uma Jean on 11/25/23 10:46 UA Ketone Negative Last Edit by Uam Jean on 11/25/23 10:46 UA Bilirubin 0 mg/dL Last Edit by Uma Jean on 11/25/23 10:46 UA Glucose 0 mg/dL Last Edit by Uma Jean on 11/25/23 10:46 Results Reviewed Results Reviewed: Laboratory Last Values Urine pH (Auto) 6.5 11/25/23 10:44 Specific [place] (Auto) 1.015 11/25/23 10:44 Urine Protein (Auto) 0 mg/dL 11/25/23 10:44 Glucose (UA)(Auto) 0 mg/dL 11/25/23 10:44 Urine Ketones (Auto) Negative 11/25/23 10:44 Urine Blood (Auto) 0 Asa/uL 11/25/23 10:44 Urine Nitrite (Auto) Negative 11/25/23 10:44 Urine Bilirubin (Auto) 0 mg/dL 11/25/23 10:44 Urine Urobilinogen (Auto) 0.2 mg/dL 11/25/23 10:44 Leukocyte Esterase (Auto) 0 Mahnaz/uL 11/25/23 10:44 Assessment & Plan Assessment & Plan (1) Erectile dysfunction: Code(s): N52.9 - Male erectile dysfunction, unspecified Category: Medical (2) Nicotine dependence: Code(s): F17.200 - Nicotine dependence, unspecified, uncomplicated Category: Medical (3) Lower urinary tract symptoms: Code(s): R39.9 - Unspecified symptoms and signs involving the genitourinary system Category: Medical Plan In office urinalysis results reviewed with the patient today; as noted above. PVR 12 mL. Patient currently denies any bothersome urinary issues or concerns. Reports be happy with current voiding parameters. Discussed referral to psychologist for further assessment and evaluation; however patient reports he does follow-up with psychologist. Discussed and stressed the importance of limiting/quitting recreational marijuana as well as daily cigarette smoking for improvement in ED as well as overall health and well-being. Continue low-dose Cialis 5 mg daily as discussed and prescribed. Will obtain FSH, LH, prolactin, SHBG, testosterone, free testosterone, and estradiol for further assessment evaluation. Discussed, educated, encouraged on the importance of drinking plenty of water daily. Follow-up in 1-3 months with labs to be completed prior; if not sooner with any issues, concerns, and or questions. Orders: Orders AMB Urinalysis Automated Today Z13.9 - Encounter for screening, unspecified Follicle Stimulating Hormone Today N52.9 - Male erectile dysfunction, unspecified Lutenizing Hormone Today N52.9 - Male erectile dysfunction, unspecified Prolactin Today N52.9 - Male erectile dysfunction, unspecified Sex Hormone Binding Globulin Today N52.9 - Male erectile dysfunction, unspecified Testosterone, Free/Total Today N52.9 - Male erectile dysfunction, unspecified Estradiol Ultra Sensitive Today E29.1 - Testicular hypofunction, N52.9 - Male erectile dysfunction, unspecified AMB Post Void Residual by ultrasound Today R39.9 - Unspecified symptoms and signs involving the genitourinary system Patient Instructions: The patient had an opportunity to ask questions regarding the treatment plan. All questions were answered. Physical exam, labs, and imaging were discussed and reviewed in detail. As well as risks, benefits, and discussion of treatment choices. No major barriers to understanding were identified. The patient expressed understanding and agreement with the above treatment plan. The patient was made aware they should contact our office by phone for worsening of their current condition, the appearance of new symptoms, or with any questions or concerns. Compliance is encouraged with any medications and follow up testing that is ordered. It is a privilege to be allowed the opportunity to participate in? your urological care.? Again, if you have any questions or concerns If you have any questions or concerns please do not hesitate to contact me. The office is [phone]. This note is constructed using voice recognition software. While every effort has been made to ensure accuracy choir leader errors may have been included. Yours sincerely, VIRGILIO Talbot Coding Level of Care Code Est Pt Level 4 (85477) Diagnoses Erectile dysfunction N52.9 Nicotine dependence F17.200 Lower urinary tract symptoms R39.9 CPT Codes Post Residual Void - PVR CPT Code: 68198-Pbln Void Residual by ultrasound ([id number]) Time Spent (min) 30
== END 2023-11-25 11:14 | disposition home or self-care (01) ==
PROVIDERS: PCP Internal Medicine; Visit Provider Nurse Practitioner Family
DX: N52.9 Male erectile dysfunction, unspecified (principal); F17.200 Nicotine dependence, unspecified, uncomplicated; R39.9 Unspecified symptoms and signs involving the genitourinary system
CPT/HCPCS: 99214

== ENCOUNTER → 2023-11-25 10:31 | Outpatient (BNVA) | payer OTHER, SELFPAY | PROVIDERS: PCP Internal Medicine; Visit Provider Nurse Practitioner Family | DX: N52.9 Male erectile dysfunction, unspecified (principal); R39.9 Unspecified symptoms and signs involving the genitourinary system; F17.210 Nicotine dependence, cigarettes, uncomplicated | CPT/HCPCS: 51798; 81003; 99212 ==

== ENCOUNTER 2024-04-12 16:59 | Emergency (ER) | payer OTHER, SELFPAY ==
[2024-04-12 17:12] VITALS: BP 149/86; PULSE 83; RESP 20; TEMP 37.2; O2SAT 98; BMI 27.5
--- NOTE | 2024-04-12 17:13 | ED_ITS ---
HPI - Male Genitourinary General Chief complaint: Urogenital-Male Stated complaint: bladder issue Time Seen by Provider: 04/12/24 17:57 Source: patient Mode of arrival: ambulatory Limitations: no limitations History of Present Illness ED Provider: SURINDER ADAME PA-C HPI Narrative: 34 year old male with pmhx significant for anxiety, depression, nicotine dependence, and erectile dysfunction presents to the ED today for evaluation of dysuria, urinary hesitancy, and bladder pressure, mainly after having intercourse. Denies flank pain, abdominal pain, hematuria, foul odor to urine. Denies penile discharge or open lesions. Sexually active with one female partner. He is requesting testing for gonorrhea and chlamydia. Related Data Home Medications ?Medication ?Instructions ?Recorded ?Confirmed No Known Home Meds 11/25/23 Allergies Allergy/AdvReac Type Severity Reaction Status Date / Time No Known Allergies Allergy Verified 04/12/24 17:15 [No Known Allergies*] Review of Systems Review of Systems: Constitutional: No fever, chills, fatigue, night sweats, weight changes ENT/Mouth: No ear pain, hearing loss, nasal congestion, sinus pain, rhinorrhea, sore throat Eyes: No eye pain, swelling, redness, vision changes, discharge Cardio: No chest pain, palpitations, SCHULZ, orthopnea, peripheral edema Pulm: No SOB, cough, sputum, wheezing, dyspnea, hemoptysis GI: No nausea, vomiting, hematemesis, abdominal pain, diarrhea, constipation, hematochezia, melena : No irregular bleeding, frequency, urgency, hesitancy, hematuria, flank pain, urinary flow changes, urinary incontinence or retention, +dysuria, +bladder pressure MSK: No back pain, neck pain, joint pain, myalgias Skin: No lesions, rashes Neuro: No weakness, numbness, paresthesias, LOC, dizziness, headache Psych: No anxiety/panic, depression, SI/HI, AH/VH All other systems reviewed and are negative. [facility] Past Medical History Attestation statement: The following information was validated with the patient. Source: old records reviewed and nursing notes reviewed Medical History Depression Anxiety Family History Family History Mother DM type 2 (diabetes mellitus, type 2) Social History Social History Housing: House Alcohol intake: current Alcohol intake frequency: a few times a week Patient Tobacco Use Status: Current everyday Tobacco user Cigarette Packs Per Day: 1 Cigarettes Per Day: 20 e-Cigarette/Vaping Use: Currently Using Substance Use Type: Marijuana Advance Directives: No Advance Directives Information Provided: No Do you have a plan to hurt others: No Plan service: No Current occupational status: unemployed Cognitive needs: No Hearing needs: No Vision needs: No Physical Exam Vital Signs: Vital Signs: Last Vital Signs Temp 98.9 F 04/12/24 20:17 Pulse 83 04/12/24 20:17 Resp 20 04/12/24 20:17 BP 149/86 H 04/12/24 20:17 Pulse Ox 98 04/12/24 20:17 O2 Del Method Room Air 04/12/24 20:17 BMI result Body Mass Index 27.5 Patient hypertensive to 149/86, afebrile General: Well appearing, in no acute distress. Skin: Warm, dry, intact. No rashes or lesions. Head: Normocephalic, atraumatic. EENT: Hearing is intact b/l. Conjunctiva clear. PERRLA. Moist mucous membranes.? Cardiac: Chest wall symmetric. RRR. No MRG. Lungs: Normal respiratory effort without accessory muscle use. CTA bilaterally.? Abdomen: Soft, non-tender, non-distended. No rebound tenderness or guarding. Positive BS x4. Back: No midline spinous or paraspinal tenderness. No step off deformity. No CVAT. Ext: Upper and lower extremities atraumatic, without tenderness, deformity, swelling or erythema. Full ROM throughout. Neuro: AOx3. Normal speech. Ambulating with steady gait. Psych: Appropriate mood and affect. Responds appropriately to questions. Course Course Course Narrative: This is a Rapid Medical Examination (RME) performed by Dariel Adame PA-C in triage. Full HPI, ROS, assessment and treatment plan per primary provider in the Main ED. 34 yo male hx of anxiety, depression, nicotine dependence, erectile dysfunction here for eval of dysuria, urinary hesitancy, and bladder pressure, mainly after having intercourse. denies hematuria, foul odor. No penile discharge or open lesions. Sexually active with female partner. requesting CT/NG testing. Plan: UA, CT/NG Reevaluation(s) Reevaluation #1: 1928 -- urine negative for infection or blood. CT/NG pending. Discussed prophylactic treatment with patient however he is declining at this time. I informed patient that CT/NG results can take a few days to return and that we will call him with any positive results at that time. He will also be treated at that time if warranted. Patient is agreeable with this. I also informed him that he can check results on online patient portal. Patient has remained stable throughout ED visit today. Discussed worrisome signs and symptoms and when to return to the ED. All questions answered at this time. Patient is agreeable with disposition and stable for discharge. Medical Decision Making Medical Decision Making [facility] Narrative: 34 year old male with pmhx significant for anxiety, depression, nicotine dependence, and erectile dysfunction presents to the ED today for evaluation of dysuria, urinary hesitancy, and bladder pressure, mainly after having intercourse. Patient hypertensive to 149/86, afebrile. He is nontoxic-appearing and in no acute distress. Abdomen is soft, nondistended, nontender to palpation, no rebound tenderness or guarding. No CVAT bilaterally. Skin warm, dry, intact. No lymphadenopathy. Differential diagnosis includes UTI, STI. Unlikely renal colic, nephrolithasis, Plan for UA, CT/NG testing and disposition. Differential Diagnosis Differential Diagnoses: The differential diagnosis associated with the presentation includes as above. Admission/Observation not indicated. Lab Data [facility] Lab Attestation statement: I reviewed the patient's lab results. as above Labs: Lab Results 04/12/24 Range/Units 17:35 Urine Color Dark Yellow Urine Appearance Clear Urine pH 6.0 (5.0-9.0) Ur Specific [place] >= 1.030 H (1.005-1.025) Urine Protein Trace (Neg-Trace) mg/dL Urine Glucose (UA) Negative (Negative) mg/dL Urine Ketones Negative (Negative) mg/dL Urine Blood Negative (Negative) Urine Nitrite Negative (Negative) Ur Leukocyte Esterase Negative (Negative) External Record Review External record reviewed: Inpatient record and Office record Social Determinants Patient?s care significantly limited by Social Determinants of Health including: Other Social Determinant of Health Critical Care Time Critical Care Time Critical Care Time: No Discharge Plan Discharge Clinical Impression: Dysuria Patient Disposition: Home, Self-Care Instructions: Dysuria (ED) Additional Instructions: You were evaluated in the ED today due to urinary symptoms. Your urine was negative for urinary tract infection. Your urine has been sent to the lab to test for gonorrhea and chlamydia. These tests can take a few days to result. If any of these tests return positive, you will receive a call from us and you will be treated at that time. You are declining prophylactic treament today. Until you are reevaluated by a health care provider, please practice safe sex as discussed. Please also have a conversation with your sexual partners. You should abstain from sex until you have tested negative for any STDs. I also advise you to obtain full panel STD testing to test for other STDs including HIV, Hepatitis B&C, and syphilis which can be done by your PCP or at a local clinic. [facility] can help facilitate these tests. They often have walk-in hours. If new or worsening symptoms occur, please return to the ED. In the case of any emergency, call 911. [facility]: [address] [place] [phone] Prescriptions: No Action No Known Home Meds Referrals: Keyanna Elias MD [Primary Care Provider] - Interventions: ED Discharge Assessment Last Done: 04/12/24 20:17 Discharge Date/Time: 04/12/24 20:18 Print Language: Frisian
[2024-04-12 17:58] LABS: Appearance Urine Clear; Color Urine Dark Yellow; Glucose Urine UA Negative (Negative); Leukocyte Esterase Urine Negative (Negative); Nitrite Urine Negative (Negative); Specific Gravity - Urine >= 1.030 (1.005-1.025); Urine Blood Negative (Negative); Urine Ketones Negative (Negative); Urine Protein Trace mg/dL (Neg-Trace)
[2024-04-12 20:17] VITALS: BP 149/86; PULSE 83; RESP 20; TEMP 37.2; O2SAT 98
[2024-04-13 03:42] LABS: CT PCR NOT DETECTED (Not Detect.); NG PCR NOT DETECTED (Not Detect.)
== END 2024-04-12 20:18 | disposition home or self-care (01) ==
PROVIDERS: Physician Assistant Medical; Emergency Provider Emergency Medicine; PCP Internal Medicine
DX: R30.0 Dysuria (principal); N52.9 Male erectile dysfunction, unspecified; R33.9 Retention of urine, unspecified; Z20.2 Contact with and (suspected) exposure to infections with a predominantly sexual mode of transmission; Z79.899 Other long term (current) drug therapy
CPT/HCPCS: 81003; 87491; 87591; 99282; 99283